=== PATIENT | female | born 1955 | race Hispanic/Latino ===

== ENCOUNTER 2017-10-25 20:55 | Emergency (ER) | payer SELFPAY ==
[~2017-10-25] VITALS: Ht 149.9 cm; Wt 45.8 kg
[~2017-10-25 20:55] MED LIST: CLARITIN10 MG PO
--- NOTE | 2017-10-25 22:48 | CT SCAN REPORT ---
CT HEAD WITHOUT IV CONTRAST CLINICAL INFORMATION: Headache and blurry vision. COMPARISON: Head CT 06/05/2013. TECHNIQUE: Contiguous axial imaging was performed from the skull base to vertex without intravenous administration of contrast. FINDINGS: There is no intracranial hemorrhage, hydrocephalus, extra-axial surface collection, midline shift, or other herniation pattern. Hinton to white matter differentiation is diffusely maintained without evidence of an evolved acute territorial infarct. The basilar cisterns are preserved. No significant soft tissue abnormality. No acute osseous abnormality. The paranasal sinuses and the mastoid air cells are well-aerated. IMPRESSION: No acute intracranial abnormality.
[2017-10-26 00:21] VITALS: BP 140/74
--- NOTE | 2017-10-26 00:57 | ED EYE COMPLAINT ---
History of Present Illness General Chief Complaint: General Adult Stated Complaint: [facility] [place] Source: patient Exam Limitations: no limitations Vital Signs & Intake/Output Vital Signs & Intake/Output Vital Signs Date Time Temp Pulse Resp B/P B/P Pulse O2 O2 Flow FiO2 Mean Ox Delivery Rate 10/26 0021 72 20 140/74 99 10/25 2111 98.6 81 18 161/88 99 Room Air ED Intake and Output 10/26 0000 10/25 1200 Intake Total Output Total Balance Patient 101 lb Weight Weight Reported by Patient Measurement Method Allergies Coded Allergies: nut - unspecified (Severe, ANAPHYLAXIS 10/26/17) MDX - Fruits (FRUITS) (ANAPHYLAXIS 03/17/15) Uncoded Allergies: ENVIRONMENTAL (SNEEZE, TRIGGERS ASTHMA 03/17/15) Reconcile Medications No Known Home Medications Triage Note: PT FROM HOME C/O RIGHT EYE REDNESS SINCE YESTERDAY. PT STATES SHE AWOKE THIS MORNING WITH BLOOD SHOT RIGHT EYE, NO TRAUMA OR INJURY. PT WENT TO A WALK IN AND STATED SHE COME TO ER DUE TO [place]KE[place], PTS BP 161/88.PT STATES [place] SINCE THIS MORNING WITH "PRESSURE" ALL AROUND HER HEAD. PT STATES MINIMAL BLURRY VISION IN LEFT EYE. Triage Nurses Notes Reviewed? yes Onset: Abrupt Duration: day(s): (1-2), constant, continues in ED Timing: single episode today Injury Environment: home Severity: mild, moderate Severity Numbers: 5 No Modifying Factors: none Right Eye Associated Symptoms: pain, sensitivity to light, injected conjunctivia LMP (ages 10-50): unknown : No Patient currently breastfeeds: No HPI: 62-year-old female with no past medical history presents for evaluation of headache and right eye redness. Patient states that she woke up this morning with the symptoms. She states that there was no trauma or triggering event. She does not wear contacts. She states that the pain is located around the eye and globally in her head described as pressure. She reports minimal blurred vision. The pain is worse with moving her eye. She is not taking any medicine for this. No fever, nausea, vomiting, chest pain, shortness of breath. No one- sided weakness. She is not taking any medication. No dizziness or lightheadedness. (Mario Daley) Past History Travel History Traveled to [place] past 21 day No Medical History Any Pertinent Medical History? see below for history Neurological: NONE EENT: NONE Cardiovascular: NONE Respiratory: NONE Gastrointestinal: NONE Hepatic: NONE Renal: NONE Musculoskeletal: NONE Psychiatric: NONE Endocrine: NONE Surgical History Surgical History: non-contributory Psychosocial History What is your primary language Telugu Tobacco Use: Current Daily Use Daily Tobacco Use Amount/Type: =< 4 Cigarettes daily Family History Hx Contributory? No (Mario Daley) Review of Systems Review of Systems Constitutional: Reports: no symptoms. Eyes: Reports: see HPI, blurred vision, inflammation, pain. Ear: Reports: no symptoms. Nose: Reports: no symptoms. Mouth: Reports: no symptoms. Throat: Reports: no symptoms. Respiratory: Reports: no symptoms. Cardiovascular: Reports: no symptoms. GI: Reports: no symptoms. Genitourinary: Reports: no symptoms. Musculoskeletal: Reports: no symptoms. Skin: Reports: no symptoms. Neurological/Psychological: Reports: see HPI, headache. Hematologic/Endocrine: Reports: no symptoms. Immunologic/Allergic: Reports: no symptoms. All Other Systems: Reviewed and Negative (Mario Daley) Physical Exam General Appearance: well developed/nourished, no apparent distress, alert, awake General Inspection: normal inspection Eyelid: normal inspection, everted for exam Conjunctiva/Sclera: normal inspection Cornea: normal inspection EOM: intact Pupil: normal accommodation, normal pupil, PERRL Anterior Chamber: normal inspection General Inspection: normal inspection Eyelid: normal inspection, everted for exam Conjunctiva/Sclera: subconjunctival hemorrhag Cornea: normal inspection EOM: intact (with pain ) Pupil: normal accommodation, normal pupil, PERRL Anterior Chamber: see diagram Posterior Segments: normal funduscopic Eye Right 1) . subConjunctival hematoma 2) Subconjunctival hematoma Physical Exam Head: atraumatic, normal appearance Ears: Bilateral: canal normal, Tympanic normal. Nose: normal inspection Mouth/Throat: normal mouth inspection, pharynx normal Neck: normal inspection, supple, full range of motion Cardiovascular/Respiratory: normal breath sounds, normal peripheral pulses, regular rate/rhythm, no respiratory distress Neurologic/Psych: no motor/sensory deficits, awake, alert, oriented x 3, normal gait, normal mood/affect, managing partner II-XII nml as tested, cerebellar testing intact. Negative Romberg normal finger to nose Skin: intact, normal color, warm/dry (Mario Daley) Progress Differential Diagnosis: corneal abrasion, corneal foreign body, conjunctivitis, orbital cellulitis, periorbital cellulitis Plan of Care: Orders Procedure Date/time Status COMPREHENSIVE METABOLIC PANEL 10/26 33 Complete CBC WITHOUT DIFFERENTIAL 10/26 33 Complete Current Medications Sig/Elizabeth Start time Last Medication Dose Stop Time Status Admin Diphenhydramine HCl 50 MG ONCE ONE 10/26 44 CAN (Benadryl) 10/26 45 Methylprednisolone 125 MG ONCE ONE 10/26 44 CAN (Solu Medrol) 10/26 45 Laboratory Tests 10/26/17 0050: Anion Gap 11, Estimated GFR > 60, BUN/Creatinine Ratio 26.7 H, Glucose 106 H, Calcium 9.3, Total Bilirubin 0.3, AST 18, ALT 23, Alkaline Phosphatase 76, Total Protein 6.8, Albumin 4.1, Globulin 2.7, Albumin/Globulin Ratio 1.5, CBC w Diff NO MAN DIFF REQ, RBC 4.43, MCV 86.4, MCH 29.4, MCHC 34.0, RDW 13.0, MPV 8.7, Gran % 62.4, Lymphocytes % 29.5, Monocytes % 6.7, Eosinophils % 1.0, Basophils % 0.4, Absolute Granulocytes 5.2, Absolute Lymphocytes 2.5, Absolute Monocytes 0.6 , Absolute Eosinophils 0.1, Absolute Basophils 0 Patient seen and evaluated. She has a large subconjunctival hematoma the pupil is normal. She is neurologically intact. CT scan of the brain without contrast that showed any acute findings. The pain in her eye is worse with movement of the eyes. We'll check basic blood work and a CT scan of the orbits with contrast to rule out orbital or periorbital cellulitis. Patient signed out to Dr. Taylor pending CT scan. Diagnostic Imaging: Viewed by Me: CT Scan. Discussed w/RAD: CT Scan. Radiology Impression: PATIENT: ANN MARIE DENT PRESENT AGE: 62 PATIENT ACCOUNT NO: [id number] : 54 LOCATION: [facility] ORDERING PHYSICIAN: Jose Luis Taylor MD SERVICE DATE: 10/25/17 EXAM TYPE: CAT - CT HEAD WO IV CONTRAST CT HEAD WITHOUT IV CONTRAST CLINICAL INFORMATION: Headache and blurry vision. COMPARISON: Head CT 06/05/2013. TECHNIQUE: Contiguous axial imaging was performed from the skull base to vertex without intravenous administration of contrast. FINDINGS: There is no intracranial hemorrhage, hydrocephalus, extra-axial surface collection, midline shift, or other herniation pattern. Hinton to white matter differentiation is diffusely maintained without evidence of an evolved acute territorial infarct. The basilar cisterns are preserved. No significant soft tissue abnormality. No acute osseous abnormality. The paranasal sinuses and the mastoid air cells are well-aerated. IMPRESSION: No acute intracranial abnormality. DICTATED BY: Eddie Bonds MD DATE/TIME DICTATED:10/25/172237 [employer] SUPERVISOR:DELMI DATE/TIME TRANSCRIBED:10/25/172237 CONFIDENTIAL, DO NOT COPY WITHOUT APPROPRIATE AUTHORIZATION. Hand-Off Endorsed To: Jose Luis Taylor MD Endorsed Time: 126 Pending: CT (Mario Daley) Radiology Impression: No acute abnormality. No significant orbital inflammatory change. The globes are symmetric. (Jos eLuis Taylor MD) Departure Departure Condition: Stable Prescriptions: Current Visit Scripts No Known Home Medications (Mario Daley) Departure Time of Disposition: 332 Disposition: HOME OR SELF CARE Clinical Impression Primary Impression: Subconjunctival hematoma Qualifiers: Laterality: right Qualified Code: H11.31 - Conjunctival hemorrhage, right eye Secondary Impressions: Headache Referrals: Segun Charles MD Call for ophthalmology follow up Departure Forms: Customer Survey General Discharge Information PA/CALL CENTER ANALYST Co-Sign Statement Statement: ED Attending supervision documentation- x I saw and evaluated the patient. I have also reviewed all the pertinent lab results and diagnostic results. I agree with the findings and the plan of care as documented in the PA's/CALL CENTER ANALYST's documentation. [] I have reviewed the ED Record and agree with the PA's/CALL CENTER ANALYST's documentation. [] Additions or exceptions (if any) to the PAs/CALL CENTER ANALYST's note and plan are summarized below: [] (Jose Luis Taylor MD)
[2017-10-26 01:08] LABS: ABSOLUTE BASOPHIL COUNT 0 /CUMM (0.0-0.2); ABSOLUTE EOSINOPHIL COUNT 0.1 /CUMM (0.0-0.7); ABSOLUTE GRANULOCYTE CT 5.2 /CUMM (1.4-6.5); ABSOLUTE LYMPH COUNT 2.5 /CUMM (1.2-3.4); ABSOLUTE MONOCYTE COUNT 0.6 /CUMM (0.10-0.60); BASOPHIL % 0.4 % (0.0-2.0); GRANULOCYTE % 62.4 % (42.2-75.2); HEMATOCRIT 38.3 % (37-47); MEAN CORPUSCULAR HGB 29.4 PG (27.0-31.0); MEAN CORPUSCULAR VOLUME 86.4 FL (81.0-99.0); MEAN PLATELET VOLUME 8.7 FL (7.4-10.4); PLATELET COUNT 222 /CUMM (130-400); RED BLOOD CELL CT 4.43 /CUMM (4.20-5.40); WHITE BLOOD CELL COUNT 8.3 /CUMM (4.8-10.8)
--- NOTE | 2017-10-26 02:44 | CT SCAN REPORT ---
EXAMINATION: CT ORBIT WITH CONTRAST CLINICAL INFORMATION: Headache. Eye pain and redness. COMPARISON: Head CT 10/25/2017 TECHNIQUE: Multidetector helical imaging of the orbits was performed in the axial plane with generation of coronal and sagittal reformatted images. The examination was performed after the administration of 95 mL of Optiray 320 IV contrast. DLP: 269 mGy-cm FINDINGS: The paranasal sinuses are well-aerated. No air-fluid levels are seen. There is slight rightward deviation of the nasal septum. The ostiomeatal complexes are clear. The lamina papyracea are intact. The ethmoid roofs are symmetric. The carotid canals are normally covered by bone. There is no abnormal enhancement. No maxillary periapical disease is seen. The mastoid air cells and visualized middle ear cavities are well-aerated. The orbits are normal. No retrobulbar or inflammation. No significant periorbital inflammatory changes are seen. The globes are symmetric. The right temporomandibular joint is unremarkable. The imaged portions of the brain demonstrate no acute abnormality. IMPRESSION: No acute abnormality. No significant orbital inflammatory change. The globes are symmetric.
== END 2017-10-26 04:13 ==
LOC: ERH 20:55
PROVIDERS: Physician Assistant Medical
DX: S05.11XA Contusion of eyeball and orbital tissues, right eye, initial encounter (principal); R51 Headache; X58.XXXA Exposure to other specified factors, initial encounter; Y92.9 Unspecified place or not applicable; Y93.9 Activity, unspecified
CPT/HCPCS: J1200; J2930